=== PATIENT | male | born 1965 | race Caucasian/White ===

== ENCOUNTER 2017-05-11 14:37 | Emergency (ER) | payer OTHER ==
--- NOTE | ~2017-05-11 | CR72 ---
[facility] A Service of [facility] RADIOLOGY TEXT RESULTS PATIENT: LENARD SCHULZ LOCATION: [facility] : 67 UNIT #: [id number] AGE: [address]: Chema Ward MD SEX: M ORDER DR: [id number] [facility] [address] [place], [place] [address] [id number] E MR#: [id number] Acc #: [id number] NAME: LENARD SCHULZ : 1965 SEX: M STUDY DATE/TIME: 05/11/2017 14:59 UNIT: [facility] ROOM: STUDY DESCRIPTION: CR Chest Single View Portable Attending Physician: Chema Ward M.D. Ordering Physician: Chema Ward M.D. Primary Care Physician: Generic Doctor Not In System MEDICAL IMAGING REPORT This report is preliminary unless electronic signature is present EXAM Portable chest. INDICATION Shortness of breath/cough for 10 days. COMPARISON 07/29/2015 FINDINGS There is no acute infiltrate. Heart size is normal. Visualized osseous structures are unremarkable. IMPRESSION No active disease. Dictated by... Winston Islas M.D. THIS IS AN ELECTRONICALLY VERIFIED REPORT Winston Islas M.D. at 05/12/2017 7:18 AM SHERRILL/glenny TD: 05/11/2017 20:50 JOB #: [id number] MEDICAL IMAGING REPORT Page 1 of 1 COPY
== END 2017-05-11 15:45 | disposition home or self-care (01) ==
LOC: CED 14:37
DX: J44.1 Chronic obstructive pulmonary disease with (acute) exacerbation (principal); F17.210 Nicotine dependence, cigarettes, uncomplicated; Z88.8 Allergy status to other drugs, medicaments and biological substances
CPT/HCPCS: 71010; 94640; 99285